=== PATIENT | female | born 1965 | race Caucasian/White ===

== ENCOUNTER 2020-04-29 08:47 | Outpatient (CLI) | payer OTHER, SELFPAY ==
--- NOTE | 2020-04-29 08:57 | MM_ITS ---
WS: [id number] DIAGNOSTIC BILATERAL DIGITAL MAMMOGRAM WITH CAD HISTORY: HX OF BREAST CANCER COMPARISON: 08/06/2014 and 04/20/2019 TECHNIQUE: Bilateral craniocaudad, mediolateral oblique, and mediolateral views are submitted. Comput er aided detection utilized. Breast composition: There are scattered areas of fibroglandular density. Increased density spiculated mass in the central posterior LEFT breast on the CC projection. Corresponds to the area of scarring and lumpectomy site as seen on multiple prior examinations. No new or increasing asymmetry. No increa sing distortion or calcification. MM/[place] [id number] IMPRESSION: BI-RADS: 2-Benign FOLLOW UP: 1 Year Follow-up
== END 2020-04-29 08:48 | disposition home or self-care (01) ==
LOC: RADSHAW 08:52
PROVIDERS: PCP Pediatrics; Visit Provider Pediatrics
DX: Z85.3 Personal history of malignant neoplasm of breast (principal)
CPT/HCPCS: 77066

== ENCOUNTER 2021-10-06 07:48 | Outpatient (CLI) | payer OTHER, SELFPAY ==
--- NOTE | 2021-10-06 08:50 | MM_ITS ---
WS: [email or web address] BILATERAL DIGITAL DIAGNOSTIC MAMMOGRAM MAMMOGRAPHY WITH CAD CLINICAL INFORMATION: SCREEN HISTORY: COMPARISON: April 29, 2020 TECHNIQUE: Bilateral CC, MLO, and ML views. FINDINGS: Scattered fibroglandular densities bilaterally. Prior lumpectomy with parenchymal fibrosis central LE FT breast is unchanged. A few incidental punctate calcifications. RIGHT breast is unchanged. No suspicious focal mass, asymmetry, calcifications, or architectural distortion. No evidence of lee gnancy. MM/[place] [id number] IMPRESSION: BI-RADS: 2-Benign FOLLOW UP: 1 Year Follow-up Recommend return to annual diagnostic mammography.
== END 2021-10-06 07:49 | disposition home or self-care (01) ==
PROVIDERS: PCP Pediatrics; Visit Provider Pediatrics
DX: Z12.31 Encounter for screening mammogram for malignant neoplasm of breast (principal)
CPT/HCPCS: 77066

== ENCOUNTER 2022-10-13 14:27 | Outpatient (CLI) | payer BC, SELFPAY ==
--- NOTE | 2022-10-13 14:36 | MM_ITS ---
WS: [email or web address] BILATERAL 3D TOMOSYNTHESIS DIGITAL DIAGNOSTIC MAMMOGRAPHY WITH CAD CLINICAL INFORMATION: HX OF BREAST CA HISTORY: Prior LEFT lumpectomy COMPARISON: 2021 TECHNIQUE: Bilateral CC, MLO, and ML views. FINDINGS: Scattered fibroglandular densities bilaterally. Prior postoperative changes LEFT lumpectomy with pare nchymal scarring similar in appearance to the prior examination. Incidental punctate calcifications. No suspicious focal mass, asymmetry, calcifications, or architectural distortion. No evidence of lee gnancy. MM/[place] [id number] IMPRESSION: BI-RADS: 2-Benign FOLLOW UP: 1 Year Follow-up Recommend return to annual diagnostic mammography. .
== END 2022-10-13 14:28 | disposition home or self-care (01) ==
PROVIDERS: PCP Pediatrics; Visit Provider Internal Medicine Hematology & Oncology
DX: Z85.3 Personal history of malignant neoplasm of breast (principal); Z90.12 Acquired absence of left breast and nipple
CPT/HCPCS: 77062; G0279

== ENCOUNTER 2022-10-22 07:44 | Oncology outpatient (recurring) (ONCR) | payer BC, SELFPAY ==
[2022-10-07 09:42] LABS: Basophils # 0.1 10^3/uL (0.0-0.1); Basophils % 1.2 %; Eosinophils # 0.2 10^3/uL (0.0-0.8); Eosinophils % 2.6 %; Hematocrit 50.3 % (37.0-47.0); Hemoglobin 15.7 g/dL (11.5-15.3); Lymphocytes # 2.2 10^3/uL (0.8-4.8); Lymphocytes % 37.5 %; Mean Corpuscular HGB Conc 31.2 g/dL (30.0-36.0); Mean Corpuscular Volume 83.4 fl (81-99); Mean Platelet Volume 11.8 fL (7.4-10.4); Monocytes # 0.5 10^3/uL (0.2-0.9); Monocytes % 9.4 %; Neutrophils # 2.83 10^3/uL (1.8-7.7); Neutrophils % 49.1 %; Nucleated Red Blood Cells % 0 %; Platelet Count 219 10^3/cmm (130-400); Red Blood Count 6.03 10^6/uL (4.1-5.3); Red Cell Distribution Width 12.9 % (12.1-15.1); White Blood Count 5.8 10^3/uL (4.0-10.0)
[2022-10-07 10:13] LABS: Alanine Aminotransferase 20 U/L (0-33); Albumin Level 4.1 g/dL (3.5-5.2); Alkaline Phosphatase 100 U/L (35-105); Aspartate Amino Transferase 24 U/L (0-32); Blood Urea Nitrogen 21 mg/dL (6-20); CA 15-3 24.9 U/mL (0-25); Calcium 10.4 mg/dL (8.5-10.5); Carbon Dioxide 24 mmol/L (22-29); Chloride 100 mmol/L (98-107); Globulin 3.2 g/dL (1.3-4.6); Glomerular Filtration Rate 57.4 mL/min (90-130); Glucose 178 mg/dL (65-115); Osmolality Calculated 293 mOsm/kg (285-295); Sodium 138 mmol/L (136-145); Total Bilirubin 0.4 mg/dL (0.15-1.2); Total Protein 7.3 g/dL (6.6-8.7)
[2022-10-08 11:59] LABS: CA 27.29 31 U/mL (<38)
== END 2022-11-05 23:59 | disposition home or self-care (01) ==
PROVIDERS: PCP Pediatrics; Visit Provider Internal Medicine Hematology & Oncology
DX: Z85.3 Personal history of malignant neoplasm of breast (principal)
CPT/HCPCS: 36415; 80053; 85025; 86300

== ENCOUNTER 2023-01-19 12:30 | Oncology outpatient (recurring) (ONCR) | payer BC, SELFPAY ==
[2023-01-19 12:39] VITALS: BP 125/78; PULSE 68; RESP 18; TEMP 36.6; O2SAT 95
[2023-01-19 12:53] LABS: Basophils # 0.1 10^3/uL (0.0-0.1); Eosinophils # 0.1 10^3/uL (0.0-0.8); Eosinophils % 2.3 %; Hematocrit 47.2 % (37.0-47.0); Hemoglobin 15.2 g/dL (11.5-15.3); Lymphocytes # 1.7 10^3/uL (0.8-4.8); Lymphocytes % 33.1 %; Mean Corpuscular HGB Conc 32.2 g/dL (30.0-36.0); Mean Corpuscular Hemoglobin 26.4 pg (28.0-34.0); Mean Corpuscular Volume 81.9 fl (81-99); Mean Platelet Volume 11.4 fL (7.4-10.4); Monocytes # 0.4 10^3/uL (0.2-0.9); Monocytes % 7.2 %; Neutrophils # 2.91 10^3/uL (1.8-7.7); Neutrophils % 56.2 %; Nucleated Red Blood Cells % 0 %; Platelet Count 241 10^3/cmm (130-400); Red Blood Count 5.76 10^6/uL (4.1-5.3); Red Cell Distribution Width 14.6 % (12.1-15.1); White Blood Count 5.2 10^3/uL (4.0-10.0)
[2023-01-19 13:14] LABS: Alanine Aminotransferase 17 U/L (0-33); Albumin Level 3.9 g/dL (3.5-5.2); Alkaline Phosphatase 79 U/L (35-105); Anion Gap 14.5 (5-19); Aspartate Amino Transferase 21 U/L (0-32); Blood Urea Nitrogen 14 mg/dL (6-20); Calcium 10.3 mg/dL (8.5-10.5); Carbon Dioxide 24 mmol/L (22-29); Chloride 99 mmol/L (98-107); Glomerular Filtration Rate 74.2 mL/min (90-130); Glucose 80 mg/dL (65-115); Osmolality Calculated 277 mOsm/kg (285-295); Potassium 3.5 mmol/L (3.5-5.1); Sodium 134 mmol/L (136-145); Total Bilirubin 0.6 mg/dL (0.15-1.2); Total Protein 6.9 g/dL (6.6-8.7)
== END 2023-02-04 23:59 | disposition home or self-care (01) ==
PROVIDERS: PCP Pediatrics; Visit Provider Internal Medicine Hematology & Oncology
DX: D05.12 Intraductal carcinoma in situ of left breast (principal)
CPT/HCPCS: 36415; 80053; 85025

== ENCOUNTER 2023-07-26 11:30 | Outpatient (CLI) | payer BC, SELFPAY ==
--- NOTE | 2023-07-26 12:00 | CT_ITS ---
WS: [email or web address] CT CHEST TECHNIQUE: Contrast enhanced CT of the chest with coronal and sagittal reformatted images. CLINICAL INFORMATION: follow up COMPARISON: CT chest 09/09/2022 DLP: 517.[address] scans at [facility] use at least one of these dose optimization techniques: automated e xposure control; mA and/or kV adjustment per patient size (includes targeted exams where dose is matc hed to clinical indication); or iterative reconstruction. FINDINGS: Normal caliber thoracic aorta. Normal caliber descending thoracic aorta. Proximal main pulm arteries are normal. Numerous prominent mediastinal, AP window, and paratracheal lymph nodes appears stable co mpared to 09/09/[address] No evidence of progressive lymphadenopathy. No axillary lymphadenopath y. No suspicious pulmonary parenchymal abnormalities. Postoperative changes lumpectomy LEFT breast with parenchymal fibrosis. Adrenal glands are normal. Pr ior cholecystectomy. Tiny esophageal hiatal hernia. IMPRESSION: 1. Prominent mediastinal, AP window, and paratracheal lymph nodes unchanged compared to outside stud ies 09/09/[address] 06/09/22 2. No suspicious pulmonary parenchymal abnormalities. 3. Postoperative changes LEFT breast with lumpectomy and parenchymal scarring stable compared to pre vious.
[2023-07-26] MEDS: iohexol 350 mg/mL 500 mL Btl (per mL) IV (12:48)
--- NOTE | 2023-07-26 13:00 | US_ITS ---
WS: [email or web address] ULTRASOUND BREAST LEFT TECHNIQUE: Ultrasound left breast focused area of concern. CLINICAL INFORMATION: follow up COMPARISON: CT chest from earlier today and prior mammogram [id number] FINDINGS: Ultrasound LEFT breast at the lumpectomy site 12 o'clock position. Dense underlying shadowing parench ymal scar tissue. No suspicious cystic or solid lesions. No lesions to target for biopsy. No other philippe spicious findings. IMPRESSION: No suspicious findings at the lumpectomy site.
== END 2023-07-26 11:31 | disposition home or self-care (01) ==
PROVIDERS: PCP Pediatrics; Visit Provider Internal Medicine Hematology & Oncology
DX: D05.12 Intraductal carcinoma in situ of left breast (principal); Z98.890 Other specified postprocedural states
CPT/HCPCS: 71260; 76642; Q9967

== ENCOUNTER 2023-07-26 12:28 | Outpatient (CLI) | payer BC, SELFPAY ==
[2023-07-26 12:49] LABS: Basophils # 0.1 10^3/uL (0.0-0.1); Basophils % 0.9 %; Eosinophils # 0.2 10^3/uL (0.0-0.8); Hematocrit 42.4 % (36-47); Lymphocytes # 2.2 10^3/uL (0.8-4.8); Lymphocytes % 38.8 %; Mean Corpuscular HGB Conc 32.1 g/dL (30-55); Mean Corpuscular Hemoglobin 27.8 pg (27-33); Mean Corpuscular Volume 86.5 fl (85-98); Mean Platelet Volume 11.6 fL (7.4-10.4); Monocytes # 0.4 10^3/uL (0.2-0.9); Monocytes % 7.3 %; Neutrophils # 2.82 10^3/uL (1.8-7.7); Neutrophils % 48.7 %; Nucleated Red Blood Cells % 0 %; Platelet Count 209 10^3/cmm (157-399); Red Cell Distribution Width 13.7 % (12.1-15.1); White Blood Count 5.78 10^3/uL (3.29-11.43)
[2023-07-26 13:03] LABS: Alanine Aminotransferase 23 U/L (0-33); Albumin Level 3.7 g/dL (3.5-5.2); Alkaline Phosphatase 89 U/L (35-105); Anion Gap 12.1 (5-19); Aspartate Amino Transferase 25 U/L (0-32); Blood Urea Nitrogen 16 mg/dL (6-20); Carbon Dioxide 25 mmol/L (22-29); Chloride 102 mmol/L (98-107); Globulin 2.6 g/dL (1.3-4.6); Glomerular Filtration Rate 57.1 mL/min (90-130); Glucose 212 mg/dL (65-115); Osmolality Calculated 287 mOsm/kg (285-295); Potassium 4.1 mmol/L (3.5-5.1); Sodium 135 mmol/L (136-145); Total Bilirubin 0.3 mg/dL (0.15-1.2); Total Protein 6.3 g/dL (6.6-8.7)
== END 2023-07-26 12:29 | disposition home or self-care (01) ==
LOC: LAB 12:31
PROVIDERS: PCP Pediatrics; Visit Provider Nurse Practitioner Family
DX: D05.12 Intraductal carcinoma in situ of left breast (principal); Z79.899 Other long term (current) drug therapy
CPT/HCPCS: 80053; 85025

== ENCOUNTER 2023-10-19 08:48 | Outpatient (CLI) | payer BC, SELFPAY ==
--- NOTE | 2023-10-19 09:32 | MM_ITS ---
WS: [email or web address] DIAGNOSTIC BILATERAL DIGITAL BREAST TOMOSYNTHESIS MAMMOGRAPHY WITH CAD HISTORY: HX OF BREAST CANCER COMPARISON: 10/13/2022 and 10/06/2021, 04/20/2019 TECHNIQUE: Bilateral craniocaudad, mediolateral oblique, and mediolateral views are submitted with to mosynthesis and SM. Computer aided detection utilized. Breast composition: There are scattered areas of fibroglandular density. Postsurgical scarring postop erative changes in the LEFT breast are stable over multiple prior examinations. No recurrent mass. No change in the postoperative site. IMPRESSION: MM/[place] [id number] BI-RADS: 2-Benign FOLLOW UP: 1 Year Follow-up
== END 2023-10-19 08:49 | disposition home or self-care (01) ==
LOC: RAD 08:48
PROVIDERS: PCP Pediatrics; Visit Provider Nurse Practitioner Family
DX: Z85.3 Personal history of malignant neoplasm of breast (principal); R92.323 Mammographic fibroglandular density, bilateral breasts; Z98.890 Other specified postprocedural states
CPT/HCPCS: 77062; G0279

== ENCOUNTER 2024-01-25 12:00 | Oncology outpatient (recurring) (ONCR) | payer BC, SELFPAY ==
--- NOTE | 2024-01-11 15:45 | CT_ITS ---
WS: [email or web address] CT chest w con* [id number] HISTORY: follow up of mediastinal lymph nodes TECHNIQUE: Axial imaging performed through the thorax. Coronal and sagittal reformats are submitted. All CT scans at [facility] use at least one of these dose optimization techniques: automated exposure control; mA and/or kV adjustment per patient size (includes targeted exams where dose is mat ched to clinical indication); or iterative reconstruction. CONTRAST: Omnipaque 350; 100 mL IV. DLP: 484.55 mGy.cm COMPARISON: 07/26/2023, 09/09/2022 Lungs and central airway: Lungs are clear and well aerated. Linear atelectasis at the RIGHT lung base . No mass or nodule. No pneumonia. Pleura: Normal. No pleural effusion. Heart and pericardium: Normal size heart with no pericardial effusion. Mediastinum and hima: Previously described numerous mediastinal and hilar lymph nodes are reidentifie d. Majority of these lymph nodes are subcentimeter. The largest lymph nodes in the RIGHT paratracheal region is 1.5 cm. Subcarinal lymph node is 1.3 cm. Overall these lymph nodes have slightly decreased in size. There has been no progression. Vessels: Normal size aortic and pulmonary artery. No coronary artery calcifications. Chest wall and lower neck: No soft tissue masses. Postoperative changes are stable in the LEFT breast . Upper abdomen: Prior cholecystectomy. No adrenal mass. Visualized liver is normal. Osseous structures: No destructive process. CT/CT chest w con* [id number] IMPRESSION: 1. No progression of the mediastinal and hilar lymphadenopathy since 3. Some of the lymph nodes have slightly decreased in size. None of the lymph n odes are increasing. Recommend continued close clinical and imaging follow-up. 2. No pulmonary mass or pneumonia. 3. Prior cholecystectomy.
[2024-01-11] MEDS: iohexol 350 mg/mL 500 mL Btl (per mL) IV (15:55)
[2024-01-25 12:16] LABS: Basophils # 0.1 10^3/uL (0.0-0.1); Eosinophils # 0.2 10^3/uL (0.0-0.8); Eosinophils % 2.4 %; Mean Corpuscular HGB Conc 33.1 g/dL (30-55); Mean Corpuscular Hemoglobin 28.3 pg (27-33); Mean Corpuscular Volume 85.4 fl (85-98); Mean Platelet Volume 10.8 fL (7.4-10.4); Monocytes # 0.6 10^3/uL (0.2-0.9); Monocytes % 7.9 %; Neutrophils # 4.28 10^3/uL (1.8-7.7); Neutrophils % 60.6 %; Nucleated Red Blood Cells % 0 %; Platelet Count 205 10^3/cmm (157-399); Red Blood Count 5.27 10^6/uL (3.85-5.65); Red Cell Distribution Width 13.7 % (12.1-15.1); White Blood Count 7.07 10^3/uL (3.29-11.43)
[2024-01-25 12:37] LABS: Alanine Aminotransferase 12 U/L (0-33); Albumin Level 3.7 g/dL (3.5-5.2); Alkaline Phosphatase 105 U/L (35-105); Aspartate Amino Transferase 20 U/L (0-32); Blood Urea Nitrogen 18 mg/dL (6-20); Calcium 9.8 mg/dL (8.5-10.5); Carbon Dioxide 25 mmol/L (22-29); Chloride 102 mmol/L (98-107); Globulin 2.9 g/dL (1.3-4.6); Glomerular Filtration Rate 64.5 mL/min (90-130); Glucose 150 mg/dL (65-115); Osmolality Calculated 291 mOsm/kg (285-295); Sodium 138 mmol/L (136-145); Total Bilirubin 0.5 mg/dL (0.15-1.2); Total Protein 6.6 g/dL (6.6-8.7)
== END 2024-02-05 23:59 | disposition home or self-care (01) ==
PROVIDERS: PCP Pediatrics; Visit Provider Nurse Practitioner Family
DX: D05.12 Intraductal carcinoma in situ of left breast; Z53.9 Procedure and treatment not carried out, unspecified reason
CPT/HCPCS: 36415; 71260; 80053; 85025; Q9967

== ENCOUNTER 2024-07-13 09:36 | Oncology outpatient (recurring) (ONCR) | payer BC, SELFPAY ==
--- NOTE | 2024-07-13 10:00 | CT_ITS ---
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 TOTAL EXAM DLP: 568.[address] scans at [facility] use at least one of these dose optimization techniques: automat ed exposure control; mA and/or kV adjustment per patient size (includes targeted exams where dose is matched to clinical indication); or iterative reconstruction. FINDINGS: The heart is enlarged. Multiple small and medium size lymph nodes are seen within the mediastinum and both hilar regions. Sm all nodes are noted in both axillary regions predominating on the right. The number of nodes and the karly dimensions are unchanged compared to the previous examination of 01/21/2024. No lung nodule or lung mass. No pleural effusion. Thoracic spine, ribs, and sternum are unremarkable. CT/CT chest w con* [id number] IMPRESSION: The examination is unchanged compared to the previous study of 01/11/2024. No elder nge in the axillary, mediastinal, or hilar lymph nodes.
[2024-07-13] MEDS: iohexol 350 mg/mL 500 mL Btl (per mL) IV (10:17)
== END 2024-08-07 23:59 | disposition home or self-care (01) ==
LOC: RAD 09:37 → ONCMED 07-16 10:00
PROVIDERS: PCP Pediatrics; Visit Provider Internal Medicine
DX: D05.12 Intraductal carcinoma in situ of left breast (principal); Z53.9 Procedure and treatment not carried out, unspecified reason; R59.0 Localized enlarged lymph nodes
CPT/HCPCS: 71260

== ENCOUNTER 2024-08-22 11:47 | Oncology outpatient (recurring) (ONCR) | payer BC, SELFPAY ==
[2024-08-22 12:16] LABS: Basophils % 0.7 %; Eosinophils # 0.1 10^3/uL (0.0-0.8); Eosinophils % 2.3 %; Hematocrit 48.6 % (36-47); Lymphocytes # 1.9 10^3/uL (0.8-4.8); Lymphocytes % 33.2 %; Mean Corpuscular HGB Conc 32.5 g/dL (30-55); Mean Corpuscular Hemoglobin 27.1 pg (27-33); Mean Corpuscular Volume 83.5 fl (85-98); Mean Platelet Volume 10.9 fL (7.4-10.4); Monocytes # 0.4 10^3/uL (0.2-0.9); Monocytes % 7.5 %; Neutrophils # 3.16 10^3/uL (1.8-7.7); Neutrophils % 56.1 %; Nucleated Red Blood Cells % 0 %; Platelet Count 210 10^3/cmm (157-399); Red Blood Count 5.82 10^6/uL (3.85-5.65); Red Cell Distribution Width 13.2 % (12.1-15.1); White Blood Count 5.63 10^3/uL (3.29-11.43)
[2024-08-22 12:44] LABS: Alanine Aminotransferase 16 U/L (0-33); Alkaline Phosphatase 128 U/L (35-105); Blood Urea Nitrogen 16 mg/dL (6-20); Carbon Dioxide 25 mmol/L (22-29); Chloride 98 mmol/L (98-107); Creatinine Clr Calc Pharmacy 96.0529; Globulin 3.1 g/dL (1.3-4.6); Glomerular Filtration Rate 73.7 mL/min (90-130); Glucose 186 mg/dL (65-115); Osmolality Calculated 288 mOsm/kg (285-295); Sodium 136 mmol/L (136-145); Total Bilirubin 0.4 mg/dL (0.15-1.2); Total Protein 7.1 g/dL (6.6-8.7)
[2024-08-22 12:45] LABS: Aspartate Amino Transferase 21 U/L (0-32)
== END 2024-09-07 23:59 | disposition home or self-care (01) ==
PROVIDERS: Nurse Practitioner Family; PCP Pediatrics; Visit Provider Internal Medicine
DX: D05.12 Intraductal carcinoma in situ of left breast (principal)
CPT/HCPCS: 36415; 80053; 85025

== ENCOUNTER 2024-12-05 07:36 | Outpatient (CLI) | payer BC, SELFPAY ==
--- NOTE | 2024-12-05 08:00 | MM_ITS ---
WS: [email or web address] DIAGNOSTIC BILATERAL DIGITAL BREAST TOMOSYNTHESIS MAMMOGRAPHY WITH CAD HISTORY: History of LEFT breast cancer COMPARISON: 10/19/2023, 10/13/2022, 10/06/2021 TECHNIQUE: Bilateral craniocaudad, mediolateral oblique, and mediolateral views are submitted with tomosynthesis and SM. Computer aided detection utilized. Breast composition: There are scattered areas of fibroglandular density. Postoperative spiculation noted in the central LEFT breast at just above the nipple line is reidentified and stable over multiple prior exams. There is a new 4 mm high density nodule in the medial posterior LEFT breast seen only on the CC projection which needs to be further evaluated. This is very close to the skin surface and may be a skin lesion. Fullness in the anterior RIGHT breast is probably due to to the nipple. No suspicious grouping of calcifications. MM/MM diag BI tomosynthesis [id number] IMPRESSION: BI-RADS: 0 - Incomplete: Need additional imaging evaluation. FOLLOW UP: Need Additional Imaging LEFT breast: Spot compression views (CC ). True ML. Ultrasound to follow if abn ormality persists. Skin marker if there is a palpable or visible abnormality in the medial inferior LEFT breast. RIGHT breast: Repeat CC with nipple marker and nipple in profile.
== END 2024-12-05 07:37 | disposition home or self-care (01) ==
PROVIDERS: PCP Pediatrics; Visit Provider Nurse Practitioner Family
DX: D05.12 Intraductal carcinoma in situ of left breast (principal); R92.323 Mammographic fibroglandular density, bilateral breasts; N64.89 Other specified disorders of breast; N63.20 Unspecified lump in the left breast, unspecified quadrant
CPT/HCPCS: 77062; G0279

== ENCOUNTER 2024-12-25 13:28 | Outpatient (CLI) | payer BC, SELFPAY ==
--- NOTE | 2024-12-25 13:31 | MM_ITS ---
WS: [email or web address] ADDITIONAL VIEWS BILATERAL MAMMOGRAM WITH DIGITAL BREAST TOMOSYNTHESIS. RIGHT breast ultrasound, limited. HISTORY: ABNORMAL MAMMOGRAM COMPARISON: 10/13/2022, 12/05/2024 and 10/19/2023 Spot compression views LEFT breast in CC, MLO projections and true ML submitted with digital breast tomosynthesis and SM. RIGHT CC with nipple marker. Nipple marker Breast composition: There are scattered areas of fibroglandular density. LEFT breast: The nodule in the medial anterior LEFT breast corresponds to a mole which is marked with a mole marker on today's follow-up study. No additional imaging necessary. RIGHT: There is persistent fullness posterior to the nipple after nipple marker is been placed. Ultrasound to follow. RIGHT breast ultrasound, limited. Ultrasound is performed retroareolar. Normal appearance of the soft tissues. Shadowing is related to the nipple. No dilated ducts or duct ectasia. MM/MM diag LT tomosynthesis [id number] IMPRESSION: BI-RADS: 2 - Benign. FOLLOW UP: 1 Year Follow-up 1. LEFT breast mammographic abnormality corresponds to a mole. 2. No persistent abnormality in the RIGHT retroareolar region.
== END 2024-12-25 13:29 | disposition home or self-care (01) ==
PROVIDERS: PCP Pediatrics; Visit Provider Nurse Practitioner Family
DX: R92.8 Other abnormal and inconclusive findings on diagnostic imaging of breast (principal); R92.323 Mammographic fibroglandular density, bilateral breasts
CPT/HCPCS: 76642; 77061; G0279

== ENCOUNTER 2025-02-27 12:37 | Oncology outpatient (recurring) (ONCR) | payer BC, SELFPAY ==
[2025-02-27 13:23] LABS: Hematocrit 45.4 % (36-47); Hemoglobin 14.40 g/dL (11.27-16.99); Mean Corpuscular HGB Conc 31.7 g/dL (30-55); Mean Corpuscular Hemoglobin 26.7 pg (27-33); Mean Corpuscular Volume 84.1 fl (85-98); Nucleated Red Blood Cells % 0 %; Platelet Count 208 10^3/cmm (157-399); Red Blood Count 5.40 10^6/uL (3.85-5.65); White Blood Count 5.97 10^3/uL (3.29-11.43)
[2025-02-27 13:40] LABS: Alanine Aminotransferase 17 U/L (0-33); Albumin Level 3.9 g/dL (3.5-5.2); Alkaline Phosphatase 124 U/L (35-105); Anion Gap 16.2 (5-19); Aspartate Amino Transferase 17 U/L (0-32); Blood Urea Nitrogen 15 mg/dL (6-20); Calcium 9.9 mg/dL (8.5-10.5); Carbon Dioxide 24 mmol/L (22-29); Chloride 104 mmol/L (98-107); Creatinine Clr Calc Pharmacy 96.2722; Globulin 2.9 g/dL (1.3-4.6); Glucose 219 mg/dL (65-115); Osmolality Calculated 298 mOsm/kg (285-295); Potassium 4.2 mmol/L (3.5-5.1); Sodium 140 mmol/L (136-145); Total Protein 6.8 g/dL (6.6-8.7)
== END 2025-03-07 23:59 | disposition home or self-care (01) ==
PROVIDERS: Nurse Practitioner Family; PCP Pediatrics; Visit Provider Internal Medicine
DX: D05.12 Intraductal carcinoma in situ of left breast (principal)
CPT/HCPCS: 36415; 80053; 85025

== ENCOUNTER 2025-07-31 10:05 | Oncology outpatient (recurring) (ONCR) | payer BC, SELFPAY ==
[2025-07-31] MEDS: iohexol 350 mg/mL 500 mL Btl (per mL) IV (10:26)
--- NOTE | 2025-07-31 10:30 | CT_ITS ---
WS: [email or web address] CT chest w con* [id number] HISTORY: abnormal CT 07/13/24 recommendation TECHNIQUE: Axial imaging performed through the thorax. Coronal and sagittal reformats are submitted. All CT scans at [facility] use at least one of these dose optimization techniques: automated exposure control; mA and/or kV adjustment per patient size (includes targeted exams where dose is matched to clinical indication); or iterative reconstruction. CONTRAST: Omnipaque 350; 100 mL IV. DLP: 538.50 mGy.cm COMPARISON: 07/13/2024, 01/11/2024, 07/26/2023 and 09/09/2022 Lungs and central airway: Lungs are clear. No mass or nodule. Pleura: Normal. No pleural effusion. Heart and pericardium: Very mild cardiomegaly. Mediastinum and hima: Numerous mediastinal and hilar lymph nodes are identified. Majority of these lymph nodes are stable in size and number. There is an increased number of lymph nodes. There is one lymph node that has increased in size this is at the RIGHT hilum. No lymph node is identified in this location of any significance on prior studies. There is now a 1.3 cm lymph node. RIGHT interlobar lymph node has developed since 09/09/2022 measuring 0.9 cm. LEFT hilar lymph nodes measuring up to 1.2 cm have developed since 09/09/2022. Vessels: Mild atherosclerosis aorta. No aneurysm. Normal size pulmonary artery. Chest wall and lower neck: Reidentified is a spiculated nodule measuring 8 mm in the LEFT breast which has been present on prior studies without change. Upper abdomen: Small hiatal hernia. No adrenal mass. Prior cholecystectomy. 3 mm low-attenuation focus in the medial RIGHT lobe of the liver is stable and probably a small cyst. Osseous structures: No destructive process. CT/CT chest w con* [id number] IMPRESSION: 1. Reidentified are numerous mediastinal and hilar lymph nodes which have been stable over multiple prior years extending to the prior exam of 09/09/2022. 2. There are a few lymph nodes that have increased in size since 01/11/2024 but stable since 07/13/2024. Bilateral hilar and RIGHT interlobar lymph nodes have i ncreased in size. These may be reactive. Early metastatic changes should be con sidered. Consider 3-month chest CT follow-up with IV contrast or PET/CT imaging follow-up. 3. No pulmonary mass or nodule.
== END 2025-08-07 23:59 | disposition home or self-care (01) ==
LOC: ONCMED 10:06
PROVIDERS: PCP Pediatrics; Visit Provider Internal Medicine
DX: D05.12 Intraductal carcinoma in situ of left breast (principal); R93.89 Abnormal findings on diagnostic imaging of other specified body structures
CPT/HCPCS: 71260